=== PATIENT | female | born 1945 | race Native Hawaiian/Other Pacific Islander ===

== ENCOUNTER 2016-12-22 12:30 | Outpatient (CLI) | payer OTHER ==
[2016-12-22 13:33] LABS: PLATELET COUNT 202 K/uL (152-353)
[2016-12-22 13:53] LABS: SODIUM 139 mmol/L (136-145)
== END 2016-12-22 13:30 | disposition home or self-care (01) ==
LOC: LAB 12:30
PROVIDERS: Nurse Practitioner Family
DX: I10 Essential (primary) hypertension (principal); Z00.00 Encounter for general adult medical examination without abnormal findings; Z79.899 Other long term (current) drug therapy; R53.83 Other fatigue; R53.81 Other malaise; E55.9 Vitamin D deficiency, unspecified
CPT/HCPCS: 80053; 80061; 82306; 82607; 83036; 84436; 84443; 85027

== ENCOUNTER 2020-10-20 17:43 | Emergency (ER) | payer OTHER, BC ==
[~2020-10-20] VITALS: Ht 165.1 cm; Wt 74.8 kg
[2020-10-20 21:26] LABS: PLATELET COUNT 196 K/uL (152-353)
[2020-10-20 21:45] LABS: POTASSIUM 3.8 mmol/L (3.6-5.2); SODIUM 140 mmol/L (136-145)
[2020-10-20 21:51] LABS: PARTIAL THROMBOPLASTIN TIME 25.5 SECONDS (24.5-33.6)
[2020-10-20 22:50] VITALS: BP 188/77; TEMP 98.2
== END 2020-10-20 22:50 | disposition home or self-care (01) ==
LOC: ED 17:43
PROVIDERS: Family Medicine
DX: R09.89 Other specified symptoms and signs involving the circulatory and respiratory systems (principal); I10 Essential (primary) hypertension; N39.0 Urinary tract infection, site not specified; Z79.82 Long term (current) use of aspirin; Z51.81 Encounter for therapeutic drug level monitoring
CPT/HCPCS: 36415; 80053; 81000; 84484; 85027; 85379; 85610; 85730; 87086; 87088; 93005; 99283

== ENCOUNTER 2021-05-11 13:13 | Emergency (ER) | payer OTHER ==
[~2021-05-11] VITALS: Ht 165.1 cm; Wt 74.8 kg
[2021-05-11 13:24] VITALS: BP 117/42; TEMP 98.5
[2021-05-11 13:48] LABS: PLATELET COUNT 245 K/uL (152-353)
[2021-05-11 13:53] LABS: POTASSIUM 3.7 mmol/L (3.6-5.2); SODIUM 138 mmol/L (136-145)
[2021-05-11 14:13] LABS: PARTIAL THROMBOPLASTIN TIME 25.2 SECONDS (24.5-33.6)
== END 2021-05-11 15:23 | disposition home or self-care (01) ==
LOC: ED 13:13
PROVIDERS: Hospitalist
DX: E86.0 Dehydration (principal); R42 Dizziness and giddiness; R55 Syncope and collapse; Z98.890 Other specified postprocedural states
CPT/HCPCS: 80053; 80320; 82550; 82553; 83880; 84484; 85027; 85610; 85730; 93005; 96360; 99284

== ENCOUNTER 2022-09-05 09:51 | Outpatient (CLI) | payer OTHER, BC | END 2022-09-05 19:03 | disposition home or self-care (01) | LOC: RAD 09:51 | PROVIDERS: ATTEND Neurological Surgery | DX: Z98.1 Arthrodesis status (principal) ==